=== PATIENT | female | born 1935 | race Caucasian/White ===

== ENCOUNTER 2017-11-05 06:00 | Inpatient (IN) | payer OTHER ==
[2017-10-30 14:56] VITALS: BMI 26.9
[2017-11-05] MEDS ORDERED: CEFAZOLIN 2 GM in DEXTROSE 5%-WATER - 100 ML IVPB ONE (06:52)
[2017-11-05] MEDS ORDERED: GABAPENTIN 300 MG CAPSULE (FP) PO ONE (06:57)
[2017-11-05] MEDS ORDERED: CELECOXIB 200 MG CAPSULE PO ONE (06:57)
[2017-11-05] MEDS ORDERED: TRANEXAMIC ACID 1000 MG/10 ML VIAL IVPUSH ONE (06:57)
[2017-11-05] MEDS ORDERED: MIDAZOLAM HCL 2 MG/2 ML SINGLE DOSE VIAL ONE ×3 (07:29→10:57)
--- NOTE | 2017-11-05 07:36 | HP ---
History & Physical Update - History History: No Change - Physical Physical: No Change - Assessment Assessment: No Change - Plan Plan: No Change (Initial H&P is in patient's chart. Mrs. 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 She is here today for TOTAL RIGHT HIP REPLACEMENT. According to her PCPs H&P, she has been optimized and cleared for today's procedure)
[2017-11-05] MEDS ORDERED: VANCOMYCIN 1,000 MG VIAL (RESTRICTED TO ID ONLY) ONE ×2 (07:38→08:58)
[2017-11-05] MEDS ORDERED: ROPIVICAINE 0.2%/MORPH PF/KETOROLAC - 51ML DISP.SYRINGE IA ONE ×3 (07:40→12:01)
[2017-11-05] MEDS ORDERED: BUPIVACAINE HCL/PF 0.5% (5MG/ML) 10 ML VIAL ONE (08:22)
[2017-11-05] MEDS ORDERED: PROPOFOL 20 ML ONE ×4 (08:37→12:08)
[2017-11-05] MEDS ORDERED: ePHEDrine SULFATE 50 MG/1 ML AMPULE ONE (09:26)
[2017-11-05] MEDS ORDERED: DEXAMETHASONE SOD PHOSPHATE 4 MG/1 ML VIAL ONE (09:28)
[2017-11-05] MEDS ORDERED: ONDANSETRON 4 MG/2 ML VIAL ONE ×2 (09:28→12:12)
[2017-11-05] MEDS ORDERED: PHENYLEPHRINE HCL 10 MG/1 ML SINGLE DOSE VIAL ONE ×2 (09:50)
[2017-11-05] MEDS ORDERED: ceFAZolin SODIUM 1 GM VIAL ONE (11:12)
[2017-11-05] MEDS ORDERED: VANCOMYCIN 1,000 MG VIAL (RESTRICTED TO ID ONLY) IVPB ONE (11:19)
--- NOTE | 2017-11-05 12:11 | OP ---
Operative Note - Note: Operative Date: 11/05/17 Pre-Operative Diagnosis: Right hip OA Operation: Right total hip replacement Post-Operative Diagnosis: Same as Pre-op Surgeon: Ugo Tam Tiller Man: Renzo Hung Anesthesiologist/FRENCH INSTRUCTOR: Hank Aponte Anesthesia: Spinal Estimated Blood Loss (mls): 50 Fluid Volume Replaced (mls): 1,400 Operative Report Dictated: Yes
[2017-11-05] MEDS ORDERED: ONDANSETRON 4 MG/2 ML VIAL IVPUSH PRN ×2 (12:12→12:28)
[2017-11-05] MEDS ORDERED: MAG HYDROX/AL HYDROX/SIMETH 30 ML UNIT-DOSE CUP PO PRN (12:12)
[2017-11-05] MEDS ORDERED: MAGNESIUM HYDROX 2400MG/30ML ORAL SUSPENSION 30 ML CUP PO PRN (12:12)
--- NOTE | 2017-11-05 12:12 | SURG ---
Surgery Fieldwork Coordinator Note Fieldwork Coordinator: Renzo Hung PA-C Date of Service: 11/05/17 Diagnosis: Right hip osteoarthritis Procedure: Right total hip replacement I was present for the entirety of the operative procedure. For further detail, please refer to operative report. Visit type - Case Type Case Type: Scheduled Admission - New patient This patient is new to me today: Yes Date on this admission: 11/05/17
[2017-11-05] MEDS ORDERED: LACTATED RINGERS SOLUTION 1,000 ML IV SCH (12:15)
[2017-11-05] MEDS ORDERED: ACETAMINOPHEN 1000 MG/100 ML VIAL (NON FORMULARY) IVPB ONE (12:28)
[2017-11-05] MEDS ORDERED: oxyCODONE HCL 5 MG TABLET ONE (13:27)
[2017-11-05] MEDS: oxyCODONE HCL 5 MG TABLET PO PRN ×2 (13:30→14:09)
[2017-11-05] MEDS ORDERED: oxyCODONE HCL 5 MG TABLET PO PRN (14:13)
[2017-11-05] MEDS: CEFAZOLIN 1 GM/D5W 1 GRAM/50 ML BAG IVPB SCH (18:34)
[2017-11-05] MEDS ORDERED: PT OWN MED DRAWER 7, Y5N ONE (21:05)
[2017-11-05] MEDS: ASPIRIN 81 MG CHEWABLE TABLETS PO SCH (21:15)
[2017-11-05] MEDS: ACETAMINOPHEN 325 MG TABLET (FP) PO SCH (21:15)
[2017-11-05] MEDS: SENNOSIDES/DOCUSATE COMBO (SENNA PLUS) TABLET (UD) PO SCH (21:17)
[2017-11-05] MEDS ORDERED: GABAPENTIN 300 MG CAPSULE (FP) PO SCH (22:00)
[2017-11-05] MEDS ORDERED: ATORVASTATIN CA 20 MG TABLET (FP) PO SCH (22:00)
[2017-11-05] MEDS ORDERED: ASPIRIN 325 MG TABLET PO SCH (22:00)
[2017-11-05] MEDS ORDERED: LATANOPROST 0.005% OPHTH SOLN 2.5ML BOTTLE OU SCH (22:00)
[2017-11-05] MEDS ORDERED: ZOLPIDEM TARTRATE 5 MG TABLET PO PRN (23:02)
[2017-11-06] MEDS: ACETAMINOPHEN 325 MG TABLET (FP) PO SCH ×2 (02:00→08:00)
[2017-11-06] MEDS: CEFAZOLIN 1 GM/D5W 1 GRAM/50 ML BAG IVPB SCH (02:00)
[2017-11-06 06:16] VITALS: BP 96/85; PULSE 85; TEMP 98.6
[2017-11-06] MEDS ORDERED: PT OWN MED DRAWER 7, Y5N ONE (06:36)
--- NOTE | 2017-11-06 08:12 | DS ---
Physical Exam: SUBJECTIVE: Patient seen and examined. POD #1 s/p total right hip replacement. Alert. Doing well. Sitting in chair at bedside. She ambulated yesterday with PT utilizing a walker. Having mild incisional tenderness. Pain controlled well via prn po medication. Tolerating diet. Voiding. Denies n/v/f/c, CP, SOB, SANDOVAL, numbness or tingling to RLE. OBJECTIVE: Last Vital Signs Temp Pulse Resp BP Pulse Ox 98.6 F 85 18 96/85 95 11/06/17 06:15 11/06/17 06:15 11/06/17 06:15 11/06/17 06:15 11/06/17 06:15 PHYSICAL EXAM GENERAL: awake, alert, and fully oriented, nad LUNGS: CTA bilat anteriorly HEART: RRR ABDOMEN: Soft, NT. ND. EXTREMITIES: 2+ pulses, warm, well-perfused, no edema. NEUROLOGICAL: GMNVI PSYCH: Normal mood, normal affect. SKIN: right hip dressing c/d/i. No hematoma HOSPITAL COURSE: Date of Admission:11/05/17 Date of Discharge: 11/06/17 The patient was admitted to the Med-Surg Unit after an elective repair of their right hip osteoarthritis. Now, s/p total right hip replacement. The day of surgery, the patient ambulated the hallways with PT and walker assistance. Narcotic and non-narcotic pain management control was achieved with an oral and IV approach. Renetta-operative IV ABX were administered. DVT prophylaxis was achieved with SCDs and early ambulation. Case Management established VNS and PT for in-home. Narcotic scripts were checked with [facility] WAITER prior to escribe. The discharge instructions and an oral pain management plan were reviewed with the patient. All questions answered. Above plan discussed with Dr. Tam and agreed. Minutes to complete discharge: 15 Visit type - Case Type Case Type: Scheduled Admission
[2017-11-06 09:19] LABS: MCHC 32.8 g/dl (32.0-36.0); MEAN CELL VOLUME 91.2 fl (80-96); MEAN PLT VOLUME 8.3 fl (7.5-11.1); PLATELET COUNT 273 K/MM3 (134-434); RDW 12.8 % (11.6-15.6); WHITE BLOOD COUNT 8.3 K/mm3 (4.0-10.8)
[2017-11-06 09:42] LABS: ANION GAP 6 (8-16); CALCIUM 8.2 mg/dl (8.4-10.2); CO2 28 mmol/L (22-28); CREATININE 0.7 mg/dl (0.6-1.3); GLUCOSE,RANDOM 117 mg/dl (74-106)
[2017-11-06] MEDS ORDERED: FOSINOPRIL SODIUM 20 MG PO SCH (10:00)
[2017-11-06] MEDS ORDERED: CALCITONIN - SALMON SYNTHETIC 3.7 ML SPRAY.PUMP NS SCH (10:00)
[2017-11-06] MEDS ORDERED: CELECOXIB 200 MG CAPSULE PO SCH (10:00)
[2017-11-06] MEDS ORDERED: LISINOPRIL 20 MG TABLET (FP) PO SCH (10:00)
[2017-11-06] MEDS ORDERED: PANTOPRAZOLE 40 MG TABLET (FP) PO SCH ×2 (10:00)
[2017-11-06] MEDS ORDERED: HYDROCHLOROTHIAZIDE 12.5 MG CAPSULE (FP) PO SCH (10:00)
[2017-11-06] MEDS ORDERED: PATIENT'S OWN MEDICATION (NON-FORMULARY) (Raloxifene Hcl 60 MG) PO SCH (10:00)
[2017-11-06] MEDS ORDERED: MULTIVITAMINS (DAILY MVI) TABLET (FP) PO SCH (10:00)
[2017-11-06] MEDS: ASPIRIN 81 MG CHEWABLE TABLETS PO SCH (10:42)
[2017-11-06] MEDS: SENNOSIDES/DOCUSATE COMBO (SENNA PLUS) TABLET (UD) PO SCH (10:43)
[2017-11-06] MEDS: oxyCODONE HCL 5 MG TABLET PO PRN (10:52)
--- NOTE | 2017-11-07 09:54 | OP ---
DATE OF OPERATION: 11/05/2017 SURGEON: Ugo Tam MD DIRECTOR OF MANUFACTURING OPERATIONS: Renzo Hung MD PREOPERATIVE DIAGNOSIS: Right hip osteoarthritis. POSTOPERATIVE DIAGNOSIS: Right hip osteoarthritis. OPERATION PERFORMED: Right total hip replacement via a direct superior approach. ANESTHESIA: Spinal and sdation. POSITION: Left lateral decubitus. INCISION: Direct superior. ESTIMATED BLOOD LOSS: 50 mL. INTRAVENOUS FLUID: Crystalloid, 2.2 L. SPECIMENS: Right femoral head. DRAINS: None. COMPLICATIONS: None. URINE OUTPUT: None. BACTERIOLOGY: None. TRANSFUSIONS: None. CLOSURE: No. 1 and 2-0 Vicryl, 3-0 Biosyn. INDICATIONS: The patient is an 82-year-old female who was seen and treated in our office for right hip osteoarthritis. The patient was indicated for right total hip replacement in order to facilitate early motion and mobilization and to prevent the complications associated with a sedentary lifestyle. Patient was identified in the holding area by her armband. A long discussion was held with the patient in the presence of her regarding the risks, benefits, and alternatives of the above-named procedure. The risks include, but are not limited to: Pain, bleeding, infection, damage to surrounding structures (including nerves, blood vessels, skin, ligaments, and bone), wound complications, failure of hardware/implants/reduction, need for further surgery, blood clots, myocardial infarction, pulmonary embolism, anesthesia complications, limb loss, limp, loss of function, and . Benefits as mentioned above. Alternative include no surgery. All questions were answered. The patient and her understood and agreed to the procedure. The formal consent was obtained, witnessed, and verified. The patients correct operative limb - the right lower extremity - was marked. Patient was taken to the operating room after being seen by the anesthesia and nursing staff. PROCEDURE: The patient was brought into the operating room, placed on the OR table, and secured with a safety strap. Consent and the operative site were again verified with the patient and nursing and anesthesia staff. Anesthesia was then administered without complication including intravenous Ancef as well as vancomycin for antibiosis. A time-out was done led by , the attending surgeon. Patient was positioned in the left lateral decubitus position with bony prominences well padded. The operative site was then prepped and draped in standard sterile fashion. The case then began. A standard direct superior approach to the right hip was made through a 10-cm incision beginning at the posterior-superior corner of the greater trochanter and extending proximally in line with the fibers of gluteus maris. Sharp dissection was taken through the skin, and then, electrocautery was used to further dissect the soft tissues and achieve hemostasis during the dissection through the subcutaneous fat down through the gluteus maris fascia until reaching the gluteus maris muscle. The incision was in fact in line with the gluteus maris muscle fibers confirming the accuracy of our preplanned trajectory in approaching the hip. A Mortensen elevator was then used to split the gluteus maris muscle fibers in line with the fibers, and the muscles were then retracted proximally and distally, opening the gluteus maris musculature like a veil or curtain. The underlying pericapsular fat was then visualized, and curved handlebar retractors were used to elevate the proximal and distal gluteus maris muscle bellies out of the way. Electrocautery was then used to dissect the pericapsular fat off the short external rotators of the hip. Another curved retractor was used to elevate gluteus medius muscle and the pyriformis along with it superiorly. The obturator internus muscle was then fully visualized and dissected off the underlying capsule, and finally its insertion in the pyriformis fossa was dissected and transected using electrocautery. The pyriformis muscle was then tagged using a No. 1 Ethibond suture and stitched to the proximal apex of the incision, and in doing so, was utilized as a sling to protect the sciatic nerve. Next, with full visualization of the hip capsule, a standard crescentic capsulotomy was performed and the hip joint was fully exposed. The hip was then dislocated and retractors were placed to protect the soft tissues and further enhance our visualization of the femoral neck. A standard femoral neck cut was made and then recut to resect the appropriate amount of femoral neck. Next, the Steinmann pin was used within the femoral head to remove the femoral head from the joint. Numerous retractors were then placed to fully expose the acetabulum. The acetabular labrum as well as pulvinar was then dissected using electrocautery and excised. Standard reamers were used to prepare the acetabular bone bed up to 53 mm in diameter. Next, a Henniker Trident 54-mm cluster cup was pressfit in place and excellent fixation was demonstrated. A 36-mm neutral polyethylene liner was then seated into the cup and secured using a ball impactor. Next, attention was turned to the femur, and with the femoral neck cross-section in plain sight, the femoral bone bed was then prepared to receive the implants. A lateralizing broach was utilized as well as numerous broaches beginning with size 0 and incrementally increasing in size to 1 and 2 and size 3 using gentle mallet strikes to advance and remove the broaches. A size 3 stem demonstrated excellent fixation, and a high offset modular trial neck with standard head were assembled onto the stem and the hip was successfully reduced. An intraoperative AP pelvis radiograph demonstrated equivocal leg length bilaterally. So, all of the trial components were removed, and the surgical field was thoroughly irrigated. Another gram of Kefzol or Ancef was then administered at this time, so, that the bone bed would be rich with antibiotic in time to receive the femoral implant. A size 3 Derian Accolade 2 stem was then pressfit using gentle mallet strikes in appropriate orientation. A 36-mm standard metal head was then impacted onto the stem, and again the hip was successfully reduced. The hip was taken through a full range of motion, and at 90 degrees of flexion, 40 degrees of internal rotation, and 40 degrees of adduction across the midline, the hip was stable within the joint. Next, all soft tissues were thoroughly irrigated with normal saline solution as they had been throughout the case. The hip capsule was repaired primarily using No. 1 Vicryls in interrupted suture fixation fashion. Four stitches were placed into the capsule as part of the repair. Next, the obturator internus tendon was released off its sutured position on the skin and repaired to the posterior-superior corner of the greater trochanter using No. 1 Ethibond suture. The capsule and associated periarticular soft tissues were injected using a prefab cocktail of analgesic medications. Vancomycin powder was introduced into the wound. The gluteus maris muscle bellies were then allowed to fall back into place, and the gluteus maris muscle fascia was closed primarily using No. 1 Vicryl sutures. The subcutaneous tissues were then also reapproximated using No. 1 and 2-0 Vicryl stitches and vancomycin powder was applied to this region, as well. The skin was then closed primarily using 3-0 Biosyn absorbable suture in subcuticular fashion. Standard compressive dressing was then applied. The sponge and needle counts were correct at the end of the case, and I, the attending surgeon, was present and scrubbed throughout the entire case. The patient was then transferred to a hospital bed with an AP pelvis demonstrated excellent overall positioning of implants with successful reduction of the hip and equal leg length. On supine positioning, the patient demonstrated equal leg length. Patient was then transferred to the recovery room in stable condition having tolerated the procedure well. MD SCOTT Marquez/[id number]
--- NOTE | 2017-11-07 14:46 | PATH ---
Surgical Pathology Report Patient Name: JULIO CESAR HOUGH Med. Rec. #: [id number] /Age/Gender: 1935 (Age: 82) / F Account: [id number] Location: [facility] MED-[facility] Taken: 11/05/2017 Received: 11/05/2017 Reported: 11/07/2017 Physicians: Ugo Tam M.D. Specimen(s) Received RIGHT FEMORAL HEAD Clinical History Right hip osteoarthritis Final Diagnosis BONE, RIGHT FEMORAL HEAD, REPLACEMENT: DEGENERATIVE JOINT DISEASE. Electronically Signed Wolfgang Gil M.D. Gross Description Received in formalin, labeled "right femoral head," is a 4.5 x 4.4 x 4.1 cm. femoral head with a 0.9 cm in length portion of femoral neck attached. The margin of resection is smooth. There is a 3.7 cm greatest dimension area of eburnation present. The remaining articular surface is guerrero-yellow and focally granular. The underlying trabecular bone is yellow and hard. A vaccine customer representative section is submitted in one cassette, following decalcification. 11/06/201711/06/2017
== END 2017-11-06 12:05 | disposition home health service (06) | DRG 470 ==
LOC: FM/S 06:00
PROVIDERS: ADMIT Orthopaedic Surgery Adult Reconstructive Orthopaedic Surgery; ATTEND Orthopaedic Surgery Adult Reconstructive Orthopaedic Surgery
PROC: 0SR90JA Replacement of Right Hip Joint with Synthetic Substitute, Uncemented, Open Approach (ICD-10-PCS; principal; 2017-11-05 08:00)
DX: M16.11 Unilateral primary osteoarthritis, right hip (principal); I10 Essential (primary) hypertension; E78.00 Pure hypercholesterolemia, unspecified
CPT/HCPCS: 36415; 73502-TC-RT; 80048; 85027; 88304-TC; 88311-TC; 94760; 97116-GP; 97162-GP